=== PATIENT | male | born 1995 | race Caucasian/White ===

== ENCOUNTER 2022-03-27 05:11 | Emergency (ER) | payer SELFPAY ==
[2022-03-27] MEDS ORDERED: Ketorolac 30 MG/ML SDV IM STA (05:17)
[2022-03-27] MEDS ORDERED: Ondansetron 4 MG Tab.DIS PO ONE (05:17)
[2022-03-27 06:05] LABS: CORONAVIRUS COVID-19 NAA NEGATIVE (NEGATIVE); INFLUENZA A NAA NEGATIVE (NEGATIVE); INFLUENZA B NAA NEGATIVE (NEGATIVE); RESPIRATORY SYNCYTIAL VIR NAA NEGATIVE (NEGATIVE)
[2022-03-27] MEDS ORDERED: Azithromycin 250 MG Tab PO STA (06:06)
[2022-03-27] MEDS ORDERED: Dexamethasone 4 MG Tab PO STA (06:07)
== END 2022-03-27 06:31 | disposition home or self-care (01) ==
LOC: MW.ED 05:11
DX: R05.9 Cough, unspecified (principal); R11.10 Vomiting, unspecified; Z20.822 Contact with and (suspected) exposure to COVID-19
CPT/HCPCS: 0241U; 96372; 99282; 99284; A9270-GY; J1885; J8540